=== PATIENT | female | born 1960 | race Caucasian/White ===

== ENCOUNTER 2021-12-27 07:52 | Outpatient (CLI) | payer OTHER, SELFPAY ==
--- NOTE | 2021-12-27 08:00 | CRLHL7_ITS ---
For Patients: As a result of the Century Cures Act, medical imaging exams and procedure reports are released immediately into your electronic medical record. You may view this report before your referring provider. If you have questions, please contact your health care provider. INDICATION: Sinusitis. TECHNIQUE: CT sinus without contrast. COMPARISON: None. FINDINGS: Paranasal sinuses: Well developed and clear. Minimal mucosal thickening in the ethmoid air cells. Otherwise the paranasal sinuses are clear. No air-fluid levels. The ostiomeatal units are patent. The fovea ethmoidalis and orbital rothman are intact. The nasal septum is midline and intact. Beam hardening artifact from dental amalgam. Right middle turbinate candida bullosa. Mild hypertrophy of the right inferior turbinate. Nasal turbinates are otherwise normal. Minimal fluid in the left dependent mastoid air cell. Orbits and globes: Unremarkable. Visualized intracranial contents: Unremarkable. Soft tissues: Unremarkable. IMPRESSION: 1. No evidence of acute sinusitis. 2. Minimal mucosal thickening in the ethmoid air cells and hypertrophy of the right inferior nasal turbinates. Left middle turbinate candida bullosa. 3. Minimal nonspecific dependent fluid in the left mastoid air cell. Please note that all CT scans at this facility use dose modulation, iterative reconstruction, and/or weight-based dosing when appropriate to reduce radiation dose to as low as reasonably achievable. Dictated by Brandon Velazco MD @ 12/27/2021 8:46:25 AM (Electronically Signed)
== END 2021-12-27 07:53 | disposition home or self-care (01) ==
LOC: CT 07:53
PROVIDERS: PCP Family Medicine; Visit Provider Otolaryngology
DX: J32.9 Chronic sinusitis, unspecified (principal); J32.2 Chronic ethmoidal sinusitis
CPT/HCPCS: 70486

== ENCOUNTER 2022-01-16 13:39 | Outpatient (RCR) | payer OTHER, SELFPAY | END 2022-02-26 12:16 | disposition home or self-care (01) | PROVIDERS: PCP Family Medicine; Visit Provider Orthopaedic Surgery Sports Medicine | DX: M75.42 Impingement syndrome of left shoulder (principal); Z51.89 Encounter for other specified aftercare | CPT/HCPCS: 97110; 97161 ==

== ENCOUNTER 2022-04-06 22:45 | Day surgery (SDC) | payer OTHER, SELFPAY ==
[2022-04-06 22:54] VITALS: BP 139/76; PULSE 85; RESP 18; TEMP 36.1; O2SAT 99; BMI 27.3
--- NOTE | 2022-04-06 23:18 | CRLHL7_ITS ---
For Patients: As a result of the Cures Act, medical imaging exams and procedure reports are released immediately into your electronic medical record. You may view this report before your referring provider. If you have questions, please contact your health care provider. INDICATION: Right lower quadrant pain. TECHNIQUE: CT abdomen and pelvis acquired with 67 cc Isovue 370 IV contrast. COMPARISON: None. FINDINGS: Lower chest: Mild bibasilar atelectasis. Liver: Unremarkable. Normal in size and attenuation. No suspicious masses. Gallbladder and bile ducts: Multiple gallstones identified within the gallbladder. Pancreas: Unremarkable. No mass or inflammation. Spleen: Unremarkable. Normal in size. No masses. Adrenal glands: Unremarkable. No nodules. Kidneys: Unremarkable. No suspicious masses, stones, or hydronephrosis. GI tract: Unremarkable. Normal in caliber. No sign of mass or inflammation. The appendix is enlarged measuring up to 11 millimeters in diameter. There is mild wall thickening and enhancement with surrounding fat stranding along the appendix. No adjacent focal fluid collections or free air. Vasculature: Abdominal aorta is normal in caliber. Mesenteric arteries are patent. Lymph nodes: Multiple calcified lymph nodes in the pelvis. Peritoneum/Abdominal Wall: Small amount of free fluid in the pelvis. Pelvis: Unremarkable. Bones: Unremarkable for age. IMPRESSION: Acute uncomplicated appendicitis. Please note that all CT scans at this facility use dose modulation, iterative reconstruction, and/or weight-based dosing when appropriate to reduce radiation dose to as low as reasonably achievable. Dictated by Mitzi Stanford MD @ 04/07/2022 12:47:22 AM (Electronically Signed)
[2022-04-06] MEDS: ONDANSETRON 2 MG/ML inj 4 MG IVP (23:30)
[2022-04-06] MEDS: HYDROmorphone 0.5 mg/0.5 ml inj IVP (23:32)
[2022-04-06] MEDS: 0.9 % SODIUM CHLORIDE 1000 ml 1,000 ML IV (23:43)
[2022-04-06 23:48] LABS: Lactate* 0.9 mmol/L (0.5-1.9)
[2022-04-06 23:51] VITALS: BP 136/76; PULSE 84; RESP 18; O2SAT 95
[2022-04-06 23:52] LABS: Basophils Percent Auto 0.1 % (0.0-3.0); Eosinophils Percent Auto 0.2 % (0.0-7.0); Hematocrit 37.9 % (33.0-51.0); Hemoglobin* 13.3 gm/dL (12.0-16.0); Immature Granulocytes Pct Auto 0.2 %; Lymphocytes Percent Auto 6.5 % (20-44); Mean Corpuscular HGB Conc 35 gm/dL (32-36); Mean Corpuscular Hemoglobin 31 pg (26-34); Mean Corpuscular Volume 90 fL (80-100); Monocytes Percent Auto 5.5 % (0.0-11.0); Neutrophils Percent Auto 87.5 % (42.0-72.0); Platelet Count* 260 K/uL (140-440); RDW Coefficient of Variation % 12.2 % (11.5-15.5); Red Blood Count 4.23 m/uL (4.00-5.20); White Blood Count* 12.09 K/uL (4.50-11.00)
[2022-04-06 23:58] LABS: Slide Review Reflex No
[2022-04-07] VITALS (32 sets, daily range): BP systolic 72–135; BP diastolic 45–80; PULSE 59–92; RESP 14–18; TEMP 36.4–36.9; O2SAT 93–100
[2022-04-07 00:08] LABS: Albumin* 4.3 g/dL (3.3-5.0); Chloride* 98 mmol/L (96-114)
[2022-04-07 00:09] LABS: Potassium* 3.5 mmol/L (3.6-5.1); Sodium* 132 mmol/L (135-149)
[2022-04-07 00:11] LABS: Amylase* 61 U/L (18-89); Aspartate Amino Transferase* 31 U/L (12-35); Bilirubin Total* 0.8 mg/dL (0.1-1.5); Carbon Dioxide* 26 mmol/L (20-32); Creatinine* 0.6 mg/dL (0.5-1.5); Est. Creatinine Clearance* 55.66; Estimated Glomerular Filt Rate 101 ml/min; Total Protein* 7.1 g/dL (6.0-8.3)
[2022-04-07 00:12] LABS: Alanine Aminotransferase* 33 U/L (4-35); Alkaline Phosphatase* 67 U/L (40-150); Blood Urea Nitrogen* 12 mg/dL (7-30); Calcium* 8.7 mg/dL (8.4-10.6); Glucose* 147 mg/dL (60-115); Lipase* 119 U/L (23-300)
[2022-04-07 00:21] LABS: C Reactive Protein* < 0.5 mg/dL (0.5-1.0); Ethanol* < 0.01 % (0.01-0.03)
--- NOTE | 2022-04-07 00:37 | ED.ABDPAIN ---
HPI - Abdominal Pain General Date Seen: 04/07/22 Chief Complaint: Abdominal Pain Stated Complaint: severe abdominal pain Time Seen by Provider: 04/06/22 22:54 Source: patient and family Mode of arrival: ambulatory Limitations: no limitations History of Present Illness HPI narrative: Patient is a 61-year-old female who presents here with abdominal pain she has had for the entire period of the day. It has gradually worsened then approximately around 6:00 a.m. just after she ate got worse she describes in her lower abdominal region, with no radiation anywhere else, it is continuous and cramping. No nausea no vomiting she is did have a small hard bowel movement today, is passing some gas. No rashes, no dysuria frequency, she easy otherwise eating normally, she did not take any medications for this. Previous history of any operations on her abdomen. MD elicited complaint: abdominal pain Pertinent past history: none Onset (ago): hour(s) Pain Consistency: constant and colicky Location: RLQ, LLQ and suprapubic Severity: severe Quality: cramping and fullness Radiation: none Migration to: no migration Exacerbating factors: nothing Relieving factors: nothing Associated symptoms: denies other symptoms Related Data Patient : No Previous Rx's Medication Instructions Recorded finasteride 5 mg tablet 2.5 mg PO QDAY #45 tabs 12/28/21 Allergies Allergy/AdvReac Type Severity Reaction Status Date / Time Tree Allergy Mild sinus, Uncoded 01/31/22 11:19 cough Review of Systems Status of ROS Reports: 10 or more systems reviewed and unremarkable except as noted in History and below [facility] Medical History Eye pressure History of benign breast biopsy Meniere's disease RLS (restless legs syndrome) Sinus headache Sinus pressure (11/16/21) Sinus pressure Skin lesions Surgical History History of benign breast biopsy (2010) Family History Mother Breast cancer, Onset Age: 70 Depression Diabetes Maternal Grandmother Stroke Colon cancer, Onset Age: 60 Brother Diabetes Prostate cancer Maternal Grandfather Myocardial infarction, Onset Age: 62 Uncle Colon cancer, Onset Age: 60 Father Prostate cancer Social History Narrative: does not drink alcohol does not exercise , retired from office work, 2 adult kids in [place] non-smoker Smoking Status: Never smoker How often do you have a drink containing alcohol: never How often do you have six or more drinks on one occasion: Never AUDIT-C Alcohol total score: 0 Non-prescribed substance use: denies use Exam Narrative: Exam Narrative: Patient is peaking normally, problem with slurring words, oriented x3. Head eyes ears nose and throat exam show equal pupils, no scleral icterus, extraocular muscles are normal, no facial droop, speech is normal, trachea normal and midline. Thyroid normal midline palpable not enlarged. Chest shows symmetrical rise bilaterally, normal auscultation with no wheezes, no increased work of breathing, no overt bruising or lesions seen, no tenderness is noted on auscultation. Heart sounds normal with no S3-S4 no murmurs clicks or gallops. Abdomen shows no obvious masses or hepatosplenomegaly, no organomegaly, bowel sounds are normal in all quadrants. She has some tenderness in the lower abdominal region, not made worse by pressing down, it is relatively mild. Bowel sounds are normal in all quadrants.. Upper and lower extremities show normal power, normal range of motion, pulses are normal, sensations normal, fine motor movements are normal, pelvis is stable to rocking. Cervical spine shows normal range of motion, and palpably not tender. Thoracic spine shows normal range of motion, and palpably not tender, lumbar spine shows no tenderness to palpation percussion and is otherwise normal range of motion. Skin shows no rashes, petechiae or eccymosis. Const: Vital Signs, click to edit/add: Vital Signs - 24 hr 04/06/22 22:54 04/06/22 23:51 04/07/22 00:02 Temperature 97.0 F L Pulse Rate 84 87 Pulse Rate [Right Pulse Oximeter] 85 Respiratory Rate 18 18 18 Blood Pressure 136/76 135/71 Blood Pressure [Ri ght Upper Arm] 139/76 Pulse Oximetry 99 95 95 Oxygen Delivery Me thod Room Air 04/07/22 00:05 04/07/22 00:31 04/07/22 00:53 Temperature Pulse Rate 84 92 Pulse Rate [Right Pulse Oximeter] Respiratory Rate 18 18 Blood Pressure 135/77 126/76 Blood Pressure [Ri ght Upper Arm] Pulse Oximetry 95 94 97 Oxygen Delivery Me thod 04/07/22 01:01 Temperature Pulse Rate 79 Pulse Rate [Right Pulse Oximeter] Respiratory Rate 18 Blood Pressure 116/61 Blood Pressure [Ri ght Upper Arm] Pulse Oximetry 99 Oxygen Delivery Me thod Course Reevaluation(s) Reevaluation #1: Patient's pain went from a 9 to a 1 with the Dilaudid, she feels very good I went over with her the results of the CT which showed acute appendicitis, this is a surgical issue we will admit her overnight, I did speak to Dr. Booth, she agreed to admit the patient overnight, NPO Zosyn, pain control with IV Dilaudid fluids, and at operation in the morning. Time: 01:13 Vital Signs Vital signs: Initial Vital Signs Temperature 97.0 F L 04/06/22 22:54 Temperature Source Temporal Artery Scan 04/06/22 22:54 Pulse Rate 85 04/06/22 22:54 Respiratory Rate 18 04/06/22 22:54 Blood Pressure 139/76 04/06/22 22:54 Blood Pressure Mean 97 04/06/22 22:54 Pulse Oximetry 99 04/06/22 22:54 Oxygen Delivery Method 04/06/22 22:54 Vital Signs Temperature 97.0 F L 04/06/22 22:54 Pulse Rate 85 04/06/22 22:54 Respiratory Rate 18 04/06/22 22:54 Blood Pressure 139/76 04/06/22 22:54 Pulse Oximetry 99 04/06/22 22:54 Oxygen Delivery Method 04/06/22 22:54 Temperature 97.0 F L 04/06/22 22:54 Pulse Rate 79 04/07/22 01:01 Respiratory Rate 18 04/07/22 01:01 Blood Pressure 116/61 04/07/22 01:01 Pulse Oximetry 99 04/07/22 01:01 Oxygen Delivery Method 04/06/22 22:54 MDM - Abdominal Pain MDM Narrative Medical decision making narrative: During the evaluation of this patient I considered multiple differential diagnosis including life-threatening differentials which are appendicitis, aortic aneurysm, mesenteric ischemia, bowel perforation, ectopic , volvulus and bowel obstruction, other differential diagnosis include but are not limited to inflammatory bowel disease, cholecystitis, pancreatitis, hepatitis, gastritis, GERD, diverticulitis, peptic ulcer disease, pyelonephritis/UTI, renal colic/stone, pelvic inflammatory disease, cervicitis, endometritis, intrauterine , dysfunctional uterine bleeding, ovarian cyst/torsion, spontaneous as well as other etiologies Differential Diagnosis Differential diagnosis: Likely abdominal pain, acute appendicitis, calculus of kidney, diverticulitis, endometriosis, gastroenteritis, pancreatitis and small bowel obstruction Medical Records Attestation: I reviewed the patient's medical records. Lab Data Attestation: I reviewed the patient's lab results. Labs: Lab Results 04/06/22 04/06/22 04/06/22 Range/Units 23:19 23:19 23:19 WBC 12.09 H (4.50-11.00) K/uL RBC 4.23 (4.00-5.20) m/uL Hgb 13.3 (12.0-16.0) gm/dL Hct 37.9 (33.0-51.0) % MCV 90 (80-100) fL MCH 31 (26-34) pg MCHC 35 (32-36) gm/dL RDW Coeff of Sarah 12.2 (11.5-15.5) % Plt Count 260 (140-440) K/uL Neut % (Auto) 87.5 H (42.0-72.0) % Lymph % (Auto) 6.5 L (20-44) % Houghton % (Auto) 5.5 (0.0-11.0) % Eos % (Auto) 0.2 (0.0-7.0) % Baso % (Auto) 0.1 (0.0-3.0) % Neut # (Auto) 10.60 H (1.7-7.0) K/uL Lymph # (Auto) 0.80 L (0.90-2.90) K/uL Houghton # (Auto) 0.70 (0.00-0.90) K/UL Eos # (Auto) 0.00 (0.00-0.50) K/uL Baso # (Auto) 0.00 (0.00-0.30) K/uL Abs Immat Gran (auto) 0.00 (0.00-0.30) K/uL Imm/Tot Granulo (auto) 0.2 % Sodium 132 L (135-149) mmol/L Potassium 3.5 L (3.6-5.1) mmol/L Chloride 98 (96-114) mmol/L Carbon Dioxide 26 (20-32) mmol/L BUN 12 (7-30) mg/dL Creatinine 0.6 (0.5-1.5) mg/dL Estimated Creat Clear 55.66 Estimated GFR 101 ml/min Glucose 147 H (60-115) mg/dL Lactate 0.9 (0.5-1.9) mmol/L Calcium 8.7 (8.4-10.6) mg/dL Total Bilirubin 0.8 (0.1-1.5) mg/dL Direct Bilirubin 0.0 (0.0-0.5) mg/dL AST 31 (12-35) U/L ALT 33 (4-35) U/L Alkaline Phosphatase 67 (40-150) U/L C-Reactive Protein < 0.5 L (0.5-1.0) mg/dL Total Protein 7.1 (6.0-8.3) g/dL Albumin 4.3 (3.3-5.0) g/dL Amylase 61 (18-89) U/L Lipase 119 (23-300) U/L Ethyl Alcohol < 0.01 L (0.01-0.03) % Imaging Data CT scan - abdomen: Attestation: I have reviewed the pertinent imaging results. My impression: Constipation Radiologist's impression: Patient: DANGELO COFFMAN Facility: [facility] Site . Site : 1960 Study: CT Abdomen/Pelvis -04/06/2022 11:56:32 PM Ordering Physician: Joseluis Birch Final Report: INDICATION: Right lower quadrant pain. TECHNIQUE: CT abdomen and pelvis acquired with 67 cc Isovue 370 IV contrast. COMPARISON: None. FINDINGS: Lower chest: Mild bibasilar atelectasis. Liver: Unremarkable. Normal in size and attenuation. No suspicious masses. Gallbladder and bile ducts: Multiple gallstones identified within the gallbladder. Pancreas: Unremarkable. No mass or inflammation. Spleen: Unremarkable. Normal in size. No masses. Adrenal glands: Unremarkable. No nodules. Kidneys: Unremarkable. No suspicious masses, stones, or hydronephrosis. GI tract: Unremarkable. Normal in caliber. No sign of mass or inflammation. The appendix is enlarged measuring up to 11 millimeters in diameter. There is mild wall thickening and enhancement with surrounding fat stranding along the appendix. No adjacent focal fluid collections or free air. Vasculature: Abdominal aorta is normal in caliber. Mesenteric arteries are patent. Lymph nodes: Multiple calcified lymph nodes in the pelvis. Peritoneum/Abdominal Wall: Small amount of free fluid in the pelvis. Pelvis: Unremarkable. Bones: Unremarkable for age. IMPRESSION: Acute uncomplicated appendicitis. Please note that all CT scans at this facility use dose modulation, iterative reconstruction, and/or weight-based dosing when appropriate to reduce radiation dose to as low as reasonably achievable. Dictated by Mitzi Stanford MD @ 04/07/2022 12:47:22 AM (Electronic Signature) Discharge Plan Discharge Clinical Impression: Acute appendicitis Patient Disposition: Admitted As Inpatient Condition: Improved
[2022-04-07 01:42] LABS: PCR FLU A Negative PCR FLU A (Negative); PCR FLU B Negative PCR FLU B (Negative)
[2022-04-07 01:43] LABS: SARS PCR* Negative SARS-CoV-2 (Negative)
[2022-04-07] MEDS: 0.9 % SODIUM CHLORIDE 1000 ml 1,000 ML 100 ML IV (02:36)
[2022-04-07 02:50] LABS: Appearance Urine Clear (Clear); Bilirubin Urine Negative (Negative); Blood Urine 1+ (Negative); Color Urine Yellow (Yellow); Glucose Urine Negative (Negative); Ketones Urine Negative (Negative); Leukocyte Esterase Urine Negative (Negative); Nitrite Urine Negative (Negative); Protein Urine Negative (Negative); Specific Gravity Urine 1.015 (1.000-1.030); Urobilinogen Urine 0.2 (0.2-1.0)
[2022-04-07] MEDS: PIPERACILLIN/TAZOBACTAM 4.5 GM in 0.9 % SODIUM CHLORIDE Mini-bag 100 ML IVPB (02:59)
[2022-04-07 03:09] LABS: RBC Urine 0-2 (0-2); WBC Urine 0-2 (0-5)
--- NOTE | 2022-04-07 05:06 | PC.NURSE ---
Admission note: Pt arrived at the facility at 0220 on a w/c accompanied by ED staff. Conscious and alert on arrival. Complained of abd pain of 3 without n/v/d. Pt oriented to room. On assessment, lung sound clear, abd sound present and active, no physical abnormality noted. V/S checked and recorded. NPO status maintained for possible surgery this morning. Pre-op assessment and education done.
[2022-04-07] MEDS: HYDROmorphone 0.5 mg/0.5 ml inj 0.2 MG IVP (06:05)
[2022-04-07] MEDS: LACTATED RINGERS 1000 ML 1,000 ML 100 ML IV (09:00)
--- NOTE | 2022-04-07 09:07 | P.GSCN_ITS ---
History of Present Illness Consult details Date Seen: 04/07/22 Consult date: 04/07/22 Narrative: Patient presented to the emergency department last night for right lower quadrant abdominal pain. She states that the pain started around 5:00 p.m. progressively has gotten worse. She has never had pain like this before. She denies any radiation of pain. Moving makes the pain worse, pain meds make it better. Denies any fevers or chills. Is reporting a decrease in appetite. Last night had some nausea and vomiting. Also is reporting some constipation, but did have a small bowel movement last night. She has never had abdominal surgery before. Review of Systems Status of ROS: Reports: 10 or more systems reviewed and unremarkable except as noted in History and below [facility] Medical History Eye pressure History of benign breast biopsy Meniere's disease RLS (restless legs syndrome) Sinus headache Sinus pressure (11/16/21) Sinus pressure Skin lesions Surgical History History of benign breast biopsy (2010) Family History Mother Breast cancer, Onset Age: 70 Depression Diabetes Maternal Grandmother Stroke Colon cancer, Onset Age: 60 Brother Diabetes Prostate cancer Maternal Grandfather Myocardial infarction, Onset Age: 62 Uncle Colon cancer, Onset Age: 60 Father Prostate cancer Social History Narrative: does not drink alcohol does not exercise , retired from office work, 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 Nontoxic in appearance Respiratory: Equal breath rise bilaterally, maintained on room air CV: Regular rhythm rate, well perfused Abdomen: Soft, mild distention, tender to palpation right lower quadrant with some guarding. Const: Vital Signs, click to edit/add: Vital Signs - 24 hr 04/06/22 22:54 04/06/22 23:51 04/07/22 00:02 Temperature 97.0 F L Pulse Rate 84 87 Pulse Rate [Left P ulse Oximeter] Pulse Rate [Right Pulse Oximeter] 85 Respiratory Rate 18 18 18 Blood Pressure 136/76 135/71 Blood Pressure [Le ft Arm] Blood Pressure [Ri ght Upper Arm] 139/76 Pulse Oximetry 99 95 95 Oxygen Delivery Me thod Room Air 04/07/22 00:05 04/07/22 00:31 04/07/22 00:53 Temperature Pulse Rate 84 92 Pulse Rate [Left P ulse Oximeter] Pulse Rate [Right Pulse Oximeter] Respiratory Rate 18 18 Blood Pressure 135/77 126/76 Blood Pressure [Le ft Arm] Blood Pressure [Ri ght Upper Arm] Pulse Oximetry 95 94 97 Oxygen Delivery Me thod 04/07/22 01:01 04/07/22 01:31 04/07/22 02:13 Temperature 98.2 F Pulse Rate 79 78 Pulse Rate [Left P ulse Oximeter] Pulse Rate [Right Pulse Oximeter] 84 Respiratory Rate 18 18 18 Blood Pressure 116/61 119/61 Blood Pressure [Le ft Arm] Blood Pressure [Ri ght Upper Arm] 117/60 Pulse Oximetry 99 97 97 Oxygen Delivery Me thod Room Air 04/07/22 03:00 04/07/22 03:00 04/07/22 07:00 Temperature 98.4 F 98.4 F 98.2 F Pulse Rate 76 Pulse Rate [Left P ulse Oximeter] 76 87 Pulse Rate [Right Pulse Oximeter] Respiratory Rate 18 18 18 Blood Pressure 126/76 Blood Pressure [Le ft Arm] 126/76 93/60 Blood Pressure [Ri ght Upper Arm] Pulse Oximetry 98 98 96 Oxygen Delivery Me thod Room Air Room Air Room Air Results Labs Labs: Abnormal lab results 04/06/22 04/06/22 04/06/22 Range/Units 23:09 23:19 23:19 WBC 12.09 H (4.50-11.00) K/uL Neut % (Auto) 87.5 H (42.0-72.0) % Lymph % (Auto) 6.5 L (20-44) % Neut # (Auto) 10.60 H (1.7-7.0) K/uL Lymph # (Auto) 0.80 L (0.90-2.90) K/uL Sodium 132 L (135-149) mmol/L Potassium 3.5 L (3.6-5.1) mmol/L Glucose 147 H (60-115) mg/dL C-Reactive Protein < 0.5 L (0.5-1.0) mg/dL Urine Blood 1+ A (Negative) Ethyl Alcohol < 0.01 L (0.01-0.03) % Diabetes panel 04/06/22 Range/Units 23:19 Sodium 132 L (135-149) mmol/L Potassium 3.5 L (3.6-5.1) mmol/L Chloride 98 (96-114) mmol/L Carbon Dioxide 26 (20-32) mmol/L BUN 12 (7-30) mg/dL Creatinine 0.6 (0.5-1.5) mg/dL Glucose 147 H (60-115) mg/dL Calcium 8.7 (8.4-10.6) mg/dL AST 31 (12-35) U/L ALT 33 (4-35) U/L Alkaline Phosphatase 67 (40-150) U/L Total Protein 7.1 (6.0-8.3) g/dL Albumin 4.3 (3.3-5.0) g/dL Calcium panel 04/06/22 Range/Units 23:19 Calcium 8.7 (8.4-10.6) mg/dL Albumin 4.3 (3.3-5.0) g/dL Pituitary panel 04/06/22 Range/Units 23:19 Sodium 132 L (135-149) mmol/L Potassium 3.5 L (3.6-5.1) mmol/L Chloride 98 (96-114) mmol/L Carbon Dioxide 26 (20-32) mmol/L BUN 12 (7-30) mg/dL Creatinine 0.6 (0.5-1.5) mg/dL Glucose 147 H (60-115) mg/dL Calcium 8.7 (8.4-10.6) mg/dL Adrenal panel 04/06/22 Range/Units 23:19 Sodium 132 L (135-149) mmol/L Potassium 3.5 L (3.6-5.1) mmol/L Chloride 98 (96-114) mmol/L Carbon Dioxide 26 (20-32) mmol/L BUN 12 (7-30) mg/dL Creatinine 0.6 (0.5-1.5) mg/dL Glucose 147 H (60-115) mg/dL Calcium 8.7 (8.4-10.6) mg/dL Total Bilirubin 0.8 (0.1-1.5) mg/dL AST 31 (12-35) U/L ALT 33 (4-35) U/L Alkaline Phosphatase 67 (40-150) U/L Total Protein 7.1 (6.0-8.3) g/dL Albumin 4.3 (3.3-5.0) g/dL All other labs normal. Imaging Abdomen CT scan report/results: report reviewed and image reviewed Assessment and Plan Assessment and plan (1) Acute appendicitis: Status: Acute Assessment and Plan: The patient presented with a history, exam and imaging findings consistent with acute appendicitis. I discussed the treatment options with the patient including non-surgical and surgical options. I recommended laparoscopic appendectomy. The risks of surgery were reviewed with the patient including the risks of bleeding, post-operative wound or intra-abdominal infection, injury to abdominal structures and possible conversion to an open operation. We also discussed anesthetic complications including OR, stroke, respiratory failure and blood clots. The patient voiced an understanding of our conversation, had the opportunity to ask questions, agreed to accept the risks of surgery and asked that we proceed with surgery.
[2022-04-07] MEDS: BUPIVACAINE 0.25% 30 ML INJECTION (10:20)
--- NOTE | 2022-04-07 10:31 | PM.GSPRC ---
Operative Note Date of procedure: 04/07/22 Type of Procedure: Laparoscopic appendectomy Procedure Description: After discussing the risks and benefits of the procedure, the patient signed informed consent.? The operative site was marked and the patient was brought to the operating room and placed on the operating table in supine position.? Care was taken to pad the patient's pressure points.?? The patient was then intubated by anesthesia.?? The operative site was then prepped and draped in the usual sterile fashion.? A time-out was then performed. Entrance to the abdomen was obtained via a 5 mm optical trocar in the left upper quadrant. The abdomen was insufflated and briefly surveyed for any signs of injury. There were none. A 12 mm port was placed lateral to the umbilicus as well as a 5 mm port in the left lower quadrant under direct vision. The patient was then placed in Trendelenburg position with the right side up. The small bowel was gently moved out of the way and the appendix was in view. A small amount of dissection was necessary to free the appendix from the surrounding pelvic attachments. This was grasped and pulled into view. A mesenteric window was created between the base of the appendix and the mesoappendix. A 45 mm Endo-FRANCIA purple load stapler was then used to transect the appendix at its base. A 45 mm vascular load stapler was then used to take the mesoappendix. The staple lines were inspected for bleeding. There was none. The appendix was then removed from the abdomen using an Endo-Catch bag. The specimen was sent to pathology. The 12 mm port site fascia was closed with 0 Vicryl. The skin was then closed with absorbable subcuticular suture. Sterile dressings were then applied. Instrument sponge and needle counts were correct at the end of the case. The patient was then woken and transported to the PACU in stable condition. Findings: Acute appendicitis, non perforated Anesthesia: GETA Surgeon: Anna Booth MD Estimated blood loss (mL): 5 Condition: stable Disposition: floor
--- NOTE | 2022-04-07 10:55 | W.ANESCHARGE ---
Anesthesia Charges Start Date/Time Anesthesia Start Date: 04/07/22 Anesthesia Start Time: 09:27 Stop Date/Time Anesthesia Stop Date: 04/07/22 Anesthesia Stop Time: 10:37 Summary Emergency: Yes
--- NOTE | 2022-04-07 11:49 | PC.NURSE ---
Addendum entered by Mateusz Gan RN 04/07/22 14:07: Pt awake, denies pain. HOB elevated. VSS, last BP 114/62 with 71HR. afebrile. advancing diet, denies nausea, BS active. encouraged to get up and void, pt agreed to have a goal to void prior to 1500. Original Note: up from PACU at 1123 - placed pt in reverse trendelenburg, fluids running open. see frequent vitals for BP/MAP. Pt improving. denies symptoms. Spouse at bedside. Lap sites CDI, glued. ice pack applied. BS hypo. warm blanket given.
[2022-04-07] MEDS: LACTATED RINGERS 1000 ML 1,000 ML 125 ML IV (11:58)
--- NOTE | 2022-04-07 14:54 | PC.NURSE ---
up to void 200cc clear yellow urine at 1445. SBA
--- NOTE | 2022-04-07 16:58 | PC.NURSE ---
Discharge [id number]- Patient denies pain. She is up walking in hallway with RN- tolerates well, is voiding, denies nausea. Lap sites open to air, no drainage. IV discontinued with catheter intact. She is given discharge instructions verbally and in print and all questions answered. She leaves with and all belongings via wheelchair.
== END 2022-04-07 17:20 | disposition home or self-care (01) ==
LOC: ED 04-07 01:03 → MS OUT 04-07 02:07 → MEDSURG 04-07 02:32
PROVIDERS: Emergency Provider Family Medicine; PCP Family Medicine; Visit Provider Surgery
PROC: 0DTJ4ZZ Resection of Appendix, Percutaneous Endoscopic Approach (ICD-10-PCS; CPT 44970; principal; 2022-04-07 09:00)
DX: K35.80 Unspecified acute appendicitis (principal); G25.81 Restless legs syndrome; H81.09 Meniere's disease, unspecified ear
CPT/HCPCS: 44970; 00840; 36415; 74177; 80048; 80076; 81001; 82077; 82150; 82962; 83605; 83690; 85025; 86140; 87631; 88304; 94761; 99140; 99284; 99285; J0330; J1100; J1170; J1200; J1885; J2405; J2543; J2704; J2710; J3010; J3490; J7030; J7120; Q9967

== ENCOUNTER 2022-10-11 13:15 | Outpatient (CLI) | payer OTHER, SELFPAY ==
--- NOTE | 2022-10-11 13:20 | CRLHL7_ITS ---
For Patients: As a result of the Century Cures Act, medical imaging exams and procedure reports are released immediately into your electronic medical record. You may view this report before your referring provider. If you have questions, please contact your health care provider. BILATERAL SCREENING MAMMOGRAM WITH COMPUTER-AIDED DETECTION AND TOMOSYNTHESIS TECHNIQUE: CC and MLO views were obtained. These mammographic images have been obtained using full-field digital technique. These mammographic images were interpreted with the benefit of computer-aided detection. Breast Tomosynthesis was used in this interpretation. COMPARISON FILM: 09/21/21, 08/04/20, 06/03/19. FINDINGS: The breasts are heterogeneously dense, which may obscure small masses IMPRESSION: There is no radiographic evidence for malignancy. ASSESSMENT: BI-RADS Category 1: Negative RECOMMENDATION: Routine screening mammogram in 1 year. A lay language report of this examination will be provided to the patient. Jim Albrecht M.D. Diagnostic Radiologist [email or web address] KURT/Dictated by: Jim Albrecht MD @ 10/12/2022 11:59:00 AM (Electronically Signed)
== END 2022-10-11 13:16 | disposition home or self-care (01) ==
LOC: MAMMO 13:16
PROVIDERS: PCP Family Medicine; Visit Provider Family Medicine
DX: Z12.31 Encounter for screening mammogram for malignant neoplasm of breast (principal); R92.2 Inconclusive mammogram
CPT/HCPCS: 77063; 77067

== ENCOUNTER 2024-01-09 15:27 | Outpatient (CLI) | payer MEDICARE, SELFPAY ==
--- NOTE | 2024-01-09 15:40 | CRLHL7_ITS ---
For Patients: As a result of the Century Cures Act, medical imaging exams and procedure reports are released immediately into your electronic medical record. You may view this report before your referring provider. If you have questions, please contact your health care provider. BILATERAL DIGITAL SCREENING MAMMOGRAM WITH COMPUTER-AIDED DETECTION AND TOMOSYNTHESIS CLINICAL HISTORY: Routine screening exam. COMPARISON: 10/11/2022. TECHNIQUE: Digital mammogram in CC and MLO projections including computer-aided detection (CAD). Tomosynthesis was used in this interpretation. BREAST COMPOSITION: There are scattered areas of fibroglandular density. FINDINGS: RIGHT Breast: Focal asymmetric density upper-outer quadrant 2 cm from the nipple. LEFT Breast: No suspicious findings. IMPRESSION: RIGHT breast asymmetry/mass. RECOMMENDATIONS: Additional mammographic views of the RIGHT breast including 3D spot compression CC/MLO. RIGHT breast ultrasound may also be required. The [facility] will contact the patient for follow-up. BI-RADS Category 0: Incomplete: Need Additional Imaging Evaluation and/or Prior Mammograms for Comparison A lay language report of this examination will be provided to the patient. Dictated by Jim Albrecht MD @ 01/10/2024 9:33:03 AM /sp SP/Dictated by: Jim Albrecht MD @ 01/10/2024 9:33:00 AM (Electronically Signed)
== END 2024-01-09 15:28 | disposition home or self-care (01) ==
LOC: MAMMO 15:32
PROVIDERS: PCP Family Medicine; Visit Provider Family Medicine
DX: Z12.31 Encounter for screening mammogram for malignant neoplasm of breast (principal); N63.10 Unspecified lump in the right breast, unspecified quadrant
CPT/HCPCS: 77063; 77067

== ENCOUNTER 2024-01-27 10:39 | Outpatient (CLI) | payer MEDICARE, SELFPAY ==
--- NOTE | 2024-01-27 10:45 | CRLHL7_ITS ---
For Patients: As a result of the Cures Act, medical imaging exams and procedure reports are released immediately into your electronic medical record. You may view this report before your referring provider. If you have questions, please contact your health care provider. DIGITAL DIAGNOSTIC RIGHT MAMMOGRAM USING TOMOSYNTHESIS AND COMPUTER-AIDED DETECTION RIGHT BREAST ULTRASOUND CLINICAL HISTORY: RIGHT breast mass/asymmetry. COMPARISON: 01/09/2024. TECHNIQUE: Digital RIGHT mammogram in two projections. Tomosynthesis and CAD were used in this interpretation. Real-time ultrasound imaging of RIGHT breast with imaging documentation. Scanning was performed by both the technologist and the radiologist. BREAST COMPOSITION: There are scattered areas of fibroglandular density. FINDINGS: 3D spot compression CC/MLO RIGHT breast mammogram images submitted. No suspicious masses or architectural distortion. No suspicious calcifications. Targeted RIGHT breast ultrasound performed 11 o`clock 3 cm from the nipple. Benign intramammary lymph node is present at mid depth measuring 4 x 2 x 5 millimeters. Adjacent fibrocystic changes noted. IMPRESSION: No suspicious findings. No evidence of malignancy. Incidental benign intramammary lymph node. RECOMMENDATIONS: Annual bilateral screening mammography. Results and recommendations discussed with the patient. BI-RADS Category 2: Benign A lay language report of this examination will be provided to the patient. Dictated by Jim Albrecht MD @ 01/27/2024 11:27:30 AM /Dictated by: Jim Albrecht MD @ 01/27/2024 11:27:00 AM (Electronically Signed)
--- NOTE | 2024-01-27 11:15 | CRLHL7_ITS ---
For Patients: As a result of the Cures Act, medical imaging exams and procedure reports are released immediately into your electronic medical record. You may view this report before your referring provider. If you have questions, please contact your health care provider. PLEASE SEE DIGITAL DIAGNOSTIC RIGHT MAMMOGRAM PERFORMED SAME DAY CRL:[email or web address] yepez/Dictated by: Jim Albrecht MD @ 01/27/2024 11:33:00 AM (Electronically Signed)
== END 2024-01-27 10:40 | disposition home or self-care (01) ==
LOC: MAMMO 10:40
PROVIDERS: PCP Family Medicine; Visit Provider Family Medicine
DX: N63.10 Unspecified lump in the right breast, unspecified quadrant (principal); R92.8 Other abnormal and inconclusive findings on diagnostic imaging of breast
CPT/HCPCS: 76642; 77065; G0279

== ENCOUNTER 2024-06-05 07:46 | Outpatient (CLI) | payer MEDICARE, SELFPAY ==
[2024-06-06 22:06] LABS: HPV Source Cervical/Vag; HPV, High Risk by TMA Not Detected
== END 2024-06-05 07:47 | disposition home or self-care (01) ==
PROVIDERS: PCP Family Medicine; Visit Provider Family Medicine
DX: E87.6 Hypokalemia (principal); R53.83 Other fatigue; R73.9 Hyperglycemia, unspecified; L65.9 Nonscarring hair loss, unspecified; Z13.6 Encounter for screening for cardiovascular disorders; Z12.4 Encounter for screening for malignant neoplasm of cervix; Z11.51 Encounter for screening for human papillomavirus (HPV)
CPT/HCPCS: 80053; 80061; 82728; 84443; 87624; 87625; 88141; 88142

== ENCOUNTER 2024-06-25 13:08 | Outpatient (CLI) | payer MEDICARE, SELFPAY | END 2024-06-25 13:09 | disposition home or self-care (01) | LOC: RAD 13:08 | PROVIDERS: PCP Family Medicine; Visit Provider Family Medicine | DX: Z13.820 Encounter for screening for osteoporosis (principal); M85.89 Other specified disorders of bone density and structure, multiple sites; Z78.0 Asymptomatic menopausal state | CPT/HCPCS: 77080 ==